=== PATIENT | female | born 1970 | race Caucasian/White ===

== ENCOUNTER → 2020-10-25 | Outpatient (CLI) | payer BC ==
[~2020-10-25] MED LIST: LIPITOR10 MG PO; NEXIUM20 MG PO; NORCO 5-325 TA1 EACH PO; PEPCID40 MG PO; SPIRONOLACTONE25 MG PO; VALACYCLOVIR MC; ZOFRAN4 MG PO; ZOLOFT25 MG PO
== END ==
LOC: SLEEP 11:03
DX: R29.818 Other symptoms and signs involving the nervous system (principal)
CPT/HCPCS: 95810

== ENCOUNTER → 2021-03-06 | Outpatient (CLI) | payer BC | LOC: EXRD 09:50 | DX: M79.645 Pain in left finger(s) (principal); M19.042 Primary osteoarthritis, left hand | CPT/HCPCS: 73130 ==

== ENCOUNTER → 2021-09-12 | Outpatient (CLI) | payer BC | LOC: EXRD 13:14 | DX: U07.1 COVID-19 (principal) | CPT/HCPCS: 71046 ==